=== PATIENT | male | born 2000 | race Hispanic/Latino ===

== ENCOUNTER 2023-06-20 16:53 | Observation (INO) | payer MEDICAID, OTHER ==
[~2023-06-20] VITALS: Ht 167.6 cm; Wt 73.0 kg
[2023-06-20 18:38] LABS: BASOPHILS # (AUTO) 0.03 K/uL (0.00-0.20); BASOPHILS % (AUTO) 0.2 % (0.0-5.0); EOSINOPHILS # (AUTO) 0.07 K/uL (0.00-0.70); EOSINOPHILS % (AUTO) 0.5 % (0.0-8.0); HEMATOCRIT 42.8 % (42-54); IMMATURE GRANULOCYTE ABSOLUTE 0.08 K/uL (0-1); LYMPHOCYTES # (AUTO) 1.5 K/uL (1.0-4.8); LYMPHOCYTES % (AUTO) 10.5 % (21.0-51.0); MEAN CORPUSCULAR HEMOGLOBIN 29.4 pg (27.0-33.0); MEAN CORPUSCULAR HGB CONC 34.6 g/dL (32.0-36.0); MEAN CORPUSCULAR VOLUME 84.9 fL (80-100); MONOCYTES # (AUTO) 0.8 K/uL (0.1-1.0); MONOCYTES % (AUTO) 5.5 % (3.0-13.0); NEUTROPHILS # (AUTO) 12.1 K/uL (1.8-7.7); NEUTROPHILS % (AUTO) 82.8 % (40.0-77.0); PLATELET COUNT (AUTO) 236 K/uL (130-400); RED BLOOD CELL COUNT(AUTO) 5.04 MIL/uL (4.50-6.20); RED CELL DISTRIBUTION WIDTH 12.7 % (11.0-15.5); WHITE BLOOD COUNT (AUTO) 14.6 K/uL (4.8-10.8)
[2023-06-20 19:01] LABS: POTASSIUM 3.8 mmol/L (3.5-5.1)
[2023-06-20 19:05] LABS: TOTAL PROTEIN, SERUM 7.6 g/dL (6.0-8.3)
[2023-06-20] MEDS: FAMOTIDINE 20MG VIAL IV ONE (20:34)
[2023-06-20] MEDS: 0.9%NACL 1000ML 1,000 ML IV ONE (20:34)
[2023-06-20] MEDS ORDERED: IOHEXOL 350 MG/ML 100ML INFUS..BTL IV ONE ×2 (20:58→20:59)
[2023-06-20 21:25] LABS: APPEARANCE,URINE CLEAR (CLEAR); BILIRUBIN,URINE NEGATIVE (NEGATIVE); COLOR,URINE LIGHT-YELLOW (YELLOW); GLUCOSE, URINE (UA) NEGATIVE (NEGATIVE); KETONES,URINE NEGATIVE (NEGATIVE); LEUKOCYTE ESTERASE ,URINE NEGATIVE Leu/uL (NEGATIVE); NITRATE,URINE NEGATIVE (NEGATIVE); OCCULT BLOOD,URINE SMALL (NEGATIVE); PROTEIN,URINE NEGATIVE (NEGATIVE); UROBILINOGEN,URINE 0.2 mg/dL (0.2-1.0)
[2023-06-20 21:26] LABS: ADD UA MICROSCOPIC YES
[2023-06-20 21:29] LABS: BACTERIA,URINE RARE /HPF (None Seen); MUCUS,URINE RARE LPF (None Seen); SQUAMOUS EPITHELIAL CELL,UR RARE /HPF (0-2); WBC,URINE 0-1 /HPF (0-1)
[2023-06-20] MEDS: ZOSYN 3.375GM +NS 50ML IVPB ONE (22:25)
[2023-06-20] MEDS: MORPHINE 4 MG SYG IVP ONE (23:00)
[2023-06-20] MEDS: ONDANSETRON 4MG INJ IVP ONE (23:00)
[2023-06-21] VITALS (27 sets, daily range): BP systolic 90–116; BP diastolic 47–82; PULSE 63–100; RESP 14–20; O2SAT 99
[2023-06-21] MEDS ORDERED: ONDANSETRON 4MG INJ IV PRN (02:30)
[2023-06-21] MEDS ORDERED: KETOROLAC 15MG/ML VIAL (15MG/ML) IV PRN (02:30)
[2023-06-21] MEDS: 0.9%NACL 1000ML 1,000 ML IV SCH (02:53)
[2023-06-21] MEDS: ZOSYN 3.375GM+NS 50ML 50 ML IV SCH (05:27)
[2023-06-21] MEDS: FAMOTIDINE 20MG VIAL IV SCH (10:01)
[2023-06-21 11:29] LABS: INR 0.95 (0.85-1.15); PROTHROMBIN TIME 11.1 SEC (9.6-11.6)
[2023-06-21 11:31] LABS: ALBUMIN 3.4 g/dL (3.5-5.0); MAGNESIUM 2.1 mg/dL (1.80-2.40); PARTIAL THROMBOPLASTIN TIME 33.3 SEC (26.3-35.5)
[2023-06-21 11:51] LABS: BILIRUBIN,TOTAL 0.7 mg/dL (0.2-1.0); TOTAL PROTEIN, SERUM 6.9 g/dL (6.0-8.3)
[2023-06-21 11:54] LABS: BASOPHILS # (AUTO) 0.04 K/uL (0.00-0.20); BASOPHILS % (AUTO) 0.5 % (0.0-5.0); EOSINOPHILS # (AUTO) 0.21 K/uL (0.00-0.70); EOSINOPHILS % (AUTO) 2.6 % (0.0-8.0); HEMATOCRIT 41.3 % (42-54); IMMATURE GRANULOCYTE ABSOLUTE 0.05 K/uL (0-1); LYMPHOCYTES # (AUTO) 1.9 K/uL (1.0-4.8); LYMPHOCYTES % (AUTO) 22.8 % (21.0-51.0); MEAN CORPUSCULAR HEMOGLOBIN 30.2 pg (27.0-33.0); MEAN CORPUSCULAR HGB CONC 35.1 g/dL (32.0-36.0); MONOCYTES # (AUTO) 0.8 K/uL (0.1-1.0); MONOCYTES % (AUTO) 9.7 % (3.0-13.0); NEUTROPHILS # (AUTO) 5.3 K/uL (1.8-7.7); NEUTROPHILS % (AUTO) 63.8 % (40.0-77.0); PLATELET COUNT (AUTO) 240 K/uL (130-400); RED CELL DISTRIBUTION WIDTH 12.8 % (11.0-15.5); WHITE BLOOD COUNT (AUTO) 8.2 K/uL (4.8-10.8)
[2023-06-21] MEDS ORDERED: BUPIVACAINE/PF 0.5% 30ML VIAL ONE (17:10)
[2023-06-21] MEDS ORDERED: DEXAMETHASONE SOD PHOSPHATE 4 MG/ML 1ML VIAL ONE (17:18)
[2023-06-21] MEDS ORDERED: LIDOCAINE HCL 4% LTA SOL 4 ML VIAL ONE (17:18)
[2023-06-21] MEDS ORDERED: LIDOCAINE PF 100MG/5ML (2%) SYRINGE 5ML ONE (17:18)
[2023-06-21] MEDS ORDERED: ROCURONIUM BROMIDE 10MG/1ML 5ML VL ONE (17:19)
[2023-06-21] MEDS ORDERED: PROPOFOL 10 MG/ML 20ML VIAL IV ONE (17:19)
[2023-06-21] MEDS ORDERED: MIDAZOLAM HCL 1 MG/ML 2ML VIAL ONE (17:19)
[2023-06-21] MEDS ORDERED: FENTANYL CITRATE PF 50 MCG/1 ML 2ML VIAL ONE (17:19)
[2023-06-21] MEDS ORDERED: ONDANSETRON 4MG INJ ONE (17:19)
[2023-06-21] MEDS ORDERED: GLYCOPYRROLATE 0.2 MG/ML 5 ML VIAL ONE (17:54)
[2023-06-21] MEDS ORDERED: NEOSTIGMINE METHYLSULFATE 1MG/ML IV ONE (17:54)
[2023-06-21] MEDS ORDERED: KETOROLAC 30MG VIAL (30MG/ML) ONE (17:58)
[2023-06-21] MEDS: BUPIVACAINE/PF 0.25% 30ML VIAL IJ ONE (17:58)
[2023-06-21] MEDS: ONDANSETRON 4MG INJ ONE (18:29)
[2023-06-21] MEDS: MEPERIDINE-PF 25 MG/ML SYG ONE (18:30)
[2023-06-21] MEDS ORDERED: MORPHINE 2 MG SYG IVP PRN (19:30)
[2023-06-22] VITALS: BP 113/61; PULSE 81; RESP 20
[2023-06-22 04:00] VITALS: BP 103/43; PULSE 61; RESP 20
[2023-06-22 06:59] LABS: BASOPHILS # (AUTO) 0.01 K/uL (0.00-0.20); BASOPHILS % (AUTO) 0.1 % (0.0-5.0); HEMATOCRIT 41.2 % (42-54); IMMATURE GRANULOCYTE ABSOLUTE 0.08 K/uL (0-1); LYMPHOCYTES # (AUTO) 1.1 K/uL (1.0-4.8); LYMPHOCYTES % (AUTO) 8.2 % (21.0-51.0); MEAN CORPUSCULAR HEMOGLOBIN 29.5 pg (27.0-33.0); MEAN CORPUSCULAR HGB CONC 34.5 g/dL (32.0-36.0); MEAN CORPUSCULAR VOLUME 85.5 fL (80-100); MONOCYTES # (AUTO) 0.7 K/uL (0.1-1.0); MONOCYTES % (AUTO) 5.5 % (3.0-13.0); NEUTROPHILS % (AUTO) 85.6 % (40.0-77.0); PLATELET COUNT (AUTO) 257 K/uL (130-400); RED BLOOD CELL COUNT(AUTO) 4.82 MIL/uL (4.50-6.20); RED CELL DISTRIBUTION WIDTH 12.2 % (11.0-15.5); WHITE BLOOD COUNT (AUTO) 12.9 K/uL (4.8-10.8)
[2023-06-22 07:30] LABS: ALBUMIN 3.4 g/dL (3.5-5.0); BILIRUBIN,TOTAL 0.7 mg/dL (0.2-1.0); POTASSIUM 4.1 mmol/L (3.5-5.1); TOTAL PROTEIN, SERUM 6.9 g/dL (6.0-8.3)
[2023-06-22 07:57] VITALS: BP 103/43; PULSE 68; RESP 17
[2023-06-22 09:19] VITALS: O2SAT 99
[2023-06-22 12:00] VITALS: BP 109/73; PULSE 66; RESP 19
[2023-06-22] MEDS ORDERED: ACET-66 PO (15:18)
[2023-06-22] MEDS ORDERED: AMOX1TAB16 PO (15:18)
[2023-06-22] MEDS ORDERED: DOCU-116 PO (15:18)
== END 2023-06-22 17:30 | disposition home or self-care (01) ==
LOC: EDH 16:53 → INTOOBSV 06-21 02:20 → EDHIP 06-21 02:20 → WSH 06-21 03:15
PROVIDERS: ADMIT Hospitalist; ATTEND Hospitalist
DX: K35.80 Unspecified acute appendicitis (principal); D72.829 Elevated white blood cell count, unspecified; R10.31 Right lower quadrant pain
CPT/HCPCS: 96365; 96375; 80053 ×3; 83690; 85025 ×3; 81001; 36415 ×3; 74177; 99291; 44970; 96376 ×2; 96366 ×2; 83735; 85610; 85730; J3490 ×6; J7030 ×3; J2543 ×5; Q9967; J3010; J0665 ×2; J2001; J2250; J2704; J2405 ×2; J1885; J2710; J1100; J2175; C1769 ×3; A4649 ×2; G0378 ×2; 96361